=== PATIENT | female | born 1990 | race Caucasian/White ===

== ENCOUNTER 2018-11-09 20:04 | Emergency (ER) | payer BC, OTHER ==
[2018-11-09 20:12] VITALS: BP 133/78
--- NOTE | 2018-11-09 20:34 | UC ---
Respiratory Complaint HPI - HPI Summary HPI Summary: Patient presents to urgent care stating she's had a head cold that has since settled in her chest. Patient states she is got a dry cough, has intermittent wheezing and today has chest pain. Patient states when she coughs, laughs she feels discomfort. Patient denies shortness of breath. Patient states she is breathing shallowly discomfort. Patient had head congestion that has since improved. Patient will take any analgesia today. Patient without fevers or chills. 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 Patient took some Mucinex this morning but no other any agents throughout the day. Patient states she is eating and drinking okay. No ear pain or sinus congestion. Patient denies any dysuria or hematuria. Patient states she is not . Patient's medications reviewed this visit. Patient does not have a history of lung disease or asthma. - History of Current Complaint Chief Complaint: UCRespiratory Stated Complaint: CHEST PAIN, SHORTNESS OF BREATH Time Seen by Provider: 11/09/18 20:23 Hx Last Menstrual Period: 10/27/18 Pain Intensity: 7 - Risk Factors Pulmonary Embolism Risk Factors: Negative - Allergies/Home Medications Allergies/Adverse Reactions: Allergies Allergy/AdvReac Type Severity Reaction Status Date / Time No Known Allergies Allergy Verified 11/09/18 20:12 Home Medications: Home Medications guaiFENesin ER TAB [Mucinex*] 600 mg PO BID 11/09/18 [History Confirmed 11/09/18 ] PMH/Surg Hx/FS Hx/Imm Hx Previously Healthy: Yes Other History Of: Negative For: Anticoagulant Therapy - Surgical History Surgical History: Yes Surgery Procedure, Year, and Place: RIGHT KNEE--2006 - Family History Known Family History: Positive: None, Non-Contributory - Social History Occupation: Employed Full-time Lives: With Family Alcohol Use: Occasionally Substance Use Type: None Smoking Status (MU): Never Smoked Tobacco Review of Systems All Other Systems Reviewed And Are Negative: Yes Constitutional: Positive: Negative Skin: Positive: Negative Eyes: Positive: Negative ENT: Positive: Negative Respiratory: Positive: Cough, Other - wheeze Cardiovascular: Positive: Chest Pain - with deep breath Gastrointestinal: Positive: Negative Genitourinary: Positive: Negative Is Patient Immunocompromised?: No Physical Exam - Summary Physical Exam Summary: Vital Signs Reviewed: Yes A+Ox3, no distress Eyes: Conjunctiva Clear, SHA. EOM intact and full ENT: Hearing grossly normal TM x 2 clear, turbiantes inflammed, mmoist, uvula midline, no exudate, no erythema Neck: Positive: Supple Respiratory: Positive: No respiratory distress, No accessory muscle use coarse dry, cough, wheeze L>R diffuse, mild chest wall pain Cardiovascular: RRR nl s1, s2 no m/r CBT <2 sec abd soft + BS nt/nd no guarding, no distension Musculoskeletal Exam: VAZQUEZ x 4 without difficulty Strength Intact, ROM Intact Neurological: Positive: Alert, + sensation throughout Psychological: Positive: Normal Response To Family Skin: Positive: no rash, no ecchymosis Triage Information Reviewed: Yes Vital Signs: Initial Vital Signs Temp 98.0 F 11/09/18 20:09 Pulse 66 11/09/18 20:09 Resp 16 11/09/18 20:09 BP 133/78 11/09/18 20:09 Pulse Ox 100 11/09/18 20:09 Re-Evaluation - Re-Evaluation First Eval Change: Improved - Pt states feels markedly improved following neb wheezing resolved, tightness resolved will discharge with Rx pred s- start tomorrow abx will start mon if sx continue MDI strict return precautions Respiratory Course/Dx - Course Course Of Treatment: Patient presents to urgent care with head congestion and fill her chest. Patient with non-productive cough. Patient states she does have a wheeze. Patient states it feels very deep but her chest is tight and has pain when she coughs. Patient took Mucinex this morning but no other analgesia medications. Patient is fevers or chills. Patient denies sick contacts. Vital signs stable not concerning. Patient with intermittent dry cough with scattered inspiratory respiratory wheezes with left > right. Will give, cxr, neb close reassessment - Differential Dx/Diagnosis Provider Diagnosis: Acute bronchitis, Upper respiratory infection Discharge - Sign-Out/Discharge Documenting (check all that apply): Patient Departure All imaging exams completed and their final reports reviewed: No - Discharge Plan Condition: Stable Disposition: HOME Prescriptions: Azithromycin TAB* [Zithromax TAB (Z-CHRISTY) 250 mg #6 tabs] 2 tab PO .TODAY, THEN 1 DAILY #1 christy predniSONE TAB* [Deltasone TAB*] 50 mg PO DAILY #5 tab Patient Education Materials: Upper Respiratory Infection (ED), Acute Bronchitis (ED) Referrals: Non Staff,Doctor [Medical Doctor] - Additional Instructions: -Take antibiotics exactly as prescribed until gone -Take prednisone as prescribed until gone -Use your albuterol puffer - 2 puffs every 4 hours for the next 2 days - then as needed -Stay well hydrated - avoid excess caffeine and all alcohol -Eat regular, healthy meals -humidify the air in the room where you sleep - boil water, run a hot steam shower, vaporizer, cups of water by heat register okay to take over the counter decongestant and cough medication -- These infections are spread by secretions - do NOT share eating or drinking utensils - clean items you share with other people such as cell phones, computer mouse, TV remote, computer tablets,etc. Once you start to feel better, change your toothbrush and your pillowcase. - If your symptoms persist, you develops green sputum or nasal secretions - okay to take antibiotic starting on Sunday -Contact your doctor to arrange a follow-up appointment this week. Call your doctor, return here or go to the emergency department if your symptoms worse, you have uncontrolled chest pain or any other questions or concerns As discussed, your radiograph was reviewed by the provider that treated you tonight. It will be read by a radiologist tomorrow morning. If there is a finding other than that discussed with you today, you will receive a call from a care provider. - Billing Disposition and Condition Condition: STABLE Disposition: Home
[2018-11-09] MEDS ORDERED: Albuterol/Ipratropium NEB.SOL* Albuterol 2.5 MG/Ipratropium 0.5 MG 3 ML INH ONE (20:40)
[2018-11-09] MEDS ORDERED: Ibuprofen TAB* 600 MG PO ONE (20:41)
[2018-11-09] MEDS ORDERED: Albuterol HFA INHALER* 8 gm MDI INH ONE (21:12)
--- NOTE | 2018-11-10 07:50 | UC ---
- Progress Note Progress Note: Chest x-ray final report: No active cardiopulmonary disease noted. Wet read correct .She was treated for bronchitis with Z-Christy. No change in plan Course/Dx - Diagnoses Provider Diagnoses: Acute bronchitis, Upper respiratory infection Discharge - Sign-Out/Discharge Documenting (check all that apply): Post-Discharge Follow Up All imaging exams completed and their final reports reviewed: Yes - Discharge Plan Condition: Stable Disposition: HOME Prescriptions: Azithromycin TAB* [Zithromax TAB (Z-CHRISTY) 250 mg #6 tabs] 2 tab PO .TODAY, THEN 1 DAILY #1 christy predniSONE TAB* [Deltasone TAB*] 50 mg PO DAILY #5 tab Patient Education Materials: Upper Respiratory Infection (ED), Acute Bronchitis (ED) Referrals: Non Staff,Doctor [Medical Doctor] - Additional Instructions: -Take antibiotics exactly as prescribed until gone -Take prednisone as prescribed until gone -Use your albuterol puffer - 2 puffs every 4 hours for the next 2 days - then as needed -Stay well hydrated - avoid excess caffeine and all alcohol -Eat regular, healthy meals -humidify the air in the room where you sleep - boil water, run a hot steam shower, vaporizer, cups of water by heat register okay to take over the counter decongestant and cough medication -- These infections are spread by secretions - do NOT share eating or drinking utensils - clean items you share with other people such as cell phones, computer mouse, TV remote, computer tablets,etc. Once you start to feel better, change your toothbrush and your pillowcase. - If your symptoms persist, you develops green sputum or nasal secretions - okay to take antibiotic starting on Sunday -Contact your doctor to arrange a follow-up appointment this week. Call your doctor, return here or go to the emergency department if your symptoms worse, you have uncontrolled chest pain or any other questions or concerns As discussed, your radiograph was reviewed by the provider that treated you tonight. It will be read by a radiologist tomorrow morning. If there is a finding other than that discussed with you today, you will receive a call from a care provider. - Billing Disposition and Condition Condition: STABLE Disposition: Home
== END 2018-11-09 21:43 | disposition home or self-care (01) ==
LOC: UCCORT 20:04
DX: J20.9 Acute bronchitis, unspecified (principal); J06.9 Acute upper respiratory infection, unspecified
CPT/HCPCS: 71046; 99203; A9270-GY; G0463